=== PATIENT | male | born 1955 | race African-American/Black ===

== ENCOUNTER 2016-05-09 13:26 | Emergency (ER) | payer OTHER ==
[~2016-05-09] VITALS: Ht 188 cm; Wt 88.9 kg
[~2016-05-09 13:26] MED LIST: ATIVAN1 MG PO; ATROVENT H200 INHALA IH; HYDROCHLOROTHIA25 MG PO; NITROSTAT0.4 MG SL; NO HOME MEDS; OXYCONTIN40 MG PO; PERCOCET 10/1 TABLET PO; PHENERGAN-CODE120 ML PO; PROAIR HFA8.5 GM IH; PROCARDIA XL30 MG PO; SUDAFED PE PRE1 EAC2 PO; VENTOLIN HFA18 GM IH; ZANTAC300 MG PO
[2016-05-09] MEDS ORDERED: MOTRIN800 MG PO (14:13)
[2016-05-09 15:01] VITALS: BP 153/90
== END 2016-05-09 15:01 | disposition home or self-care (01) ==
LOC: EME 13:26
DX: S80.01XA Contusion of right knee, initial encounter (principal); X58.XXXA Exposure to other specified factors, initial encounter
CPT/HCPCS: 73564; 99281; 99284